=== PATIENT | male | born 1955 | race Caucasian/White ===

== ENCOUNTER 2016-05-28 19:10 | Inpatient (IN) | payer BC ==
[~2016-05-28] VITALS: Ht 177.8 cm; Wt 87.2 kg
[2016-05-28] VITALS (7 sets, daily range): BP systolic 151–198; BP diastolic 94–133; PULSE 70–109; RESP 16–32; O2SAT 95–98
[~2016-05-28 19:10] MED LIST: AMLO5 PO; ASPI81TA82 PO; ATOR40TA49 PO; CARV6.252 PO; HYDR-2768 PO; LOSA50TA PO; PRAS10TA PO
[2016-05-28] MEDS ORDERED: ASPI81CH CHEW (19:23)
[2016-05-28] MEDS ORDERED: SODIUM CHLORIDE 0.9% FLUSH 5 ML FLUSH IVF PRN (19:45)
[2016-05-28 20:22] LABS: AUTOMATED NEUTROPHIL # 5.2 TH/MM3 (1.8-7.7); BASOPHIL # 0.1 TH/MM3 (0-0.2); BASOPHIL % 0.8 % (0.0-2.0); EOSINOPHIL # 0.2 TH/MM3 (0-0.4); EOSINOPHIL % 2.6 % (0.0-4.0); HEMATOCRIT 46.5 % (39.0-51.0); HEMO FLAGS DIFF FINAL; LYMPH % 26.4 % (9.0-44.0); LYMPHOCYTE # 2.2 TH/MM3 (1.0-4.8); MEAN CELL VOLUME 79.4 FL (80.0-100.0); MEAN CORPUSCULAR HGB CONC 32.7 % (32.0-36.0); MONO % 8.6 % (0.0-8.0); NEUT % 61.6 % (16.0-70.0); PLATELET COUNT 270 TH/MM3 (150-450); RED BLOOD COUNT 5.85 MIL/MM3 (4.50-5.90); RED CELL DISTRIBUTION WIDTH 16.2 % (11.6-17.2); WHITE BLOOD COUNT 8.5 TH/MM3 (4.0-11.0)
--- NOTE | 2016-05-28 20:22 | RADRPT ---
EXAM DATE/TIME: 05/28/2016 19:48 [facility] COMPARISON: No previous studies available for comparison. INDICATIONS : Shortness of breath. MEDICAL HISTORY : None. SURGICAL HISTORY : Cardiac stent. ENCOUNTER: Initial ACUITY: 2 weeks PAIN SCORE: 0/10 LOCATION: Bilateral chest FINDINGS: Mild bibasilar consolidation with small moderate right and small left pleural effusions are noted. Th ere is a questionable 2.4 cm masslike opacity laterally the left midlung. There is mild cardiomegaly. No pneumothorax. CONCLUSION: 1. Mild failure with smaller moderate right and small left pleural effusions. 2. Questionable 2.4 cm nodule versus focal infiltrate laterally left mid lung. After clearing of the pulmonary edema and effusions, a followup 2 view chest x-ray examination is recommended. Spenser Alarcon MD on May 28, 2016 at 20:19 Board Certified Radiologist. This report was verified electronically.
[2016-05-28 20:38] LABS: APTT (PATIENT) 27.8 SEC (24.3-30.1); PROTHROMBIN TIME - PATIENT 10.8 SEC (9.8-11.6)
[2016-05-28 20:50] LABS: ANION GAP 7 MEQ/L (5-15); BICARBONATE 30.9 MEQ/L (21.0-32.0); BLOOD UREA NITROGEN 13 MG/DL (7-18); CHLORIDE 101 MEQ/L (98-107); CREATINE KINASE 111 U/L (39-308); GLOMERULAR FILTRATION RATE 64 ML/MIN (>89); MAGNESIUM 2.1 MG/DL (1.5-2.5); POTASSIUM 3.6 MEQ/L (3.5-5.1); SODIUM (NA) 139 MEQ/L (136-145)
[2016-05-28] MEDS ORDERED: hydrALAZINE HCL 20 MG/ML VIAL IV PUSH ONE (21:00)
[2016-05-28] MEDS ORDERED: AZITHROMYCIN INJ 500 MG in SODIUM CHLOR 0.9% 250 ML INJ 250 ML IV ONE (21:00)
[2016-05-28] MEDS ORDERED: cefTRIAXone INJ 1,000 MG in SODIUM CHLORIDE 0.9% INJ 100 ML IV ONE (21:00)
[2016-05-28 21:03] LABS: CKMB 2.5 NG/ML (0.5-3.6)
--- NOTE | 2016-05-28 21:11 | PD ---
HPI Chief Complaint: Respiratory Distress Time Seen by Provider: 19:24 Travel History International Travel<30 days: No Contact w/Intl Traveler<30days: No Traveled to known affect area: No History of Present Illness HPI 60yo M with PMH of CAD s/p cardiac stent 3 years ago, HTN noncompliant with medication presents to the ED with c/o sob for weeks. States it is getting worst and his finally made him come today. Pt is a chronic smoker. Pt's blood pressure is normally in the 190s/160 at home but does not see anyone and was kicked out of Dr. Villalobos's practice for noncompliance. Currently denies any fever, cough, chest pain, n/v, abdominal pain, weakness, numbness. PFSH Past Medical History Cardiac Catheterization: Yes (STENT ) Cardiovascular Problems: Yes (LA, STENT) Diminished Hearing: No Hypertension: Yes Past Surgical History Other Surgery: Yes Social History Alcohol Use: Yes (6 PACK/WEEK) Tobacco Use: Yes (1/2 PPD) Substance Use: No Allergies-Medications (Allergen,Severity, Reaction): Coded Allergies: No Known Allergies (Unverified , 05/28/16) Reported Meds & Prescriptions Reported Meds & Active Scripts Active Reported Aspirin 81 Mg Chew 81 Mg CHEW DAILY Review of Systems Except as stated in HPI: all other systems reviewed are Neg Physical Exam Narrative GENERAL: 60yo M in moderate distress. SKIN: Warm and dry. HEAD: Atraumatic. Normocephalic. EYES: Pupils equal and round. No scleral icterus. No injection or drainage. ENT: No nasal bleeding or discharge. Mucous membranes pink and moist. NECK: Trachea midline. No JVD. CARDIOVASCULAR: Regular rate and rhythm. No murmur appreciated. RESPIRATORY: +accessory muscle use. Crackles right lung, decreased breath sound left lower lung. GASTROINTESTINAL: Abdomen soft, non-tender, nondistended. MUSCULOSKELETAL: No obvious deformities. No clubbing. No cyanosis. +Bilateral lower extremity edema. NEUROLOGICAL: Awake and alert. No obvious cranial nerve deficits. Motor grossly within normal limits. Normal speech. PSYCHIATRIC: Appropriate mood and affect; insight and judgment normal. Data Data Last Documented VS Vital Signs Date Time Temp Pulse Resp B/P Pulse Ox O2 Delivery O2 Flow Rate FiO2 05/28/16 19:58 98 Nasal Cannula 2.00 05/28/16 19:58 99 26 198/132 Orders Complete Blood Count With Diff (05/28/16 19:40) Basic Metabolic Panel (Bmp) (05/28/16 19:40) B-Type Natriuretic Peptide (05/28/16 19:40) Act Partial Throm Time (Ptt) (05/28/16 19:40) Prothrombin Time / Inr (Pt) (05/28/16 19:40) Magnesium (Mg) (05/28/16 19:40) Ckmb (Isoenzyme) Profile (05/28/16 19:40) Troponin I (05/28/16 19:40) Influenzae A/B Antigen (05/28/16 19:40) Blood Culture (05/28/16 19:40) Iv Access Insert/Monitor (05/28/16 19:40) Ecg Monitoring (05/28/16 19:40) Oximetry (05/28/16 19:40) Oxygen Administration (05/28/16 19:40) Chest, Single Ap (05/28/16 19:40) Sodium Chloride 0.9% Flush (Ns Flush) (05/28/16 19:45) CKMB (05/28/16 20:01) CKMB% (05/28/16 20:01) Hydralazine Inj (Apresoline Inj) (05/28/16 21:00) Ceftriaxone Inj (Rocephin Inj) (05/28/16 21:00) Azithromycin Inj (Zithromax Inj) (05/28/16 21:00) Furosemide Inj (Lasix Inj) (05/28/16 21:15) Furosemide Inj (Lasix Inj) (05/28/16 21:15) Admit Order (Ed Use Only) (05/28/16 21:11) Place In Observation (05/28/16 ) Vital Signs (Adult) Q4H (05/28/16 21:11) Activity Oob With Assistance (05/28/16 21:11) ^ Medical Transcription Editor / Telemetry .CONTINUOUS (05/28/16 21:11) Intake + Output MICHELLE.QSHIFT (05/28/16 21:11) Diet Heart Healthy (05/29/16 Breakfast) Sodium Chloride 0.9% Flush (Ns Flush) (05/28/16 21:15) Sodium Chloride 0.9% Flush (Ns Flush) (05/29/16 09:00) Basic Metabolic Panel (Bmp) (05/29/16 06:00) Complete Blood Count With Diff (05/29/16 06:00) Creatine Kinase (Cpk) (05/29/16 08:00) Troponin I (05/29/16 08:00) Resp Oxygen Jose Manuel C Titrat 1-4 L (05/28/16 ) Pt Request For Service (05/28/16 21:11) Case Management Consult (05/28/16 21:11) Naloxone Inj (Narcan Inj) (05/28/16 21:15) Labs Laboratory Tests Test 05/28/16 20:01 White Blood Count 8.5 TH/MM3 Red Blood Count 5.85 MIL/MM3 Hemoglobin 15.2 GM/DL Hematocrit 46.5 % Mean Corpuscular Volume 79.4 FL Mean Corpuscular Hemoglobin 26.0 PG Mean Corpuscular Hemoglobin 32.7 % Concent Red Cell Distribution Width 16.2 % Platelet Count 270 TH/MM3 Mean Platelet Volume 8.0 FL Neutrophils (%) (Auto) 61.6 % Lymphocytes (%) (Auto) 26.4 % Monocytes (%) (Auto) 8.6 % Eosinophils (%) (Auto) 2.6 % Basophils (%) (Auto) 0.8 % Neutrophils # (Auto) 5.2 TH/MM3 Lymphocytes # (Auto) 2.2 TH/MM3 Monocytes # (Auto) 0.7 TH/MM3 Eosinophils # (Auto) 0.2 TH/MM3 Basophils # (Auto) 0.1 TH/MM3 CBC Comment DIFF FINAL Differential Comment Prothrombin Time 10.8 SEC Prothromb Time International 1.0 RATIO Ratio Activated Partial 27.8 SEC Thromboplast Time Sodium Level 139 MEQ/L Potassium Level 3.6 MEQ/L Chloride Level 101 MEQ/L Carbon Dioxide Level 30.9 MEQ/L Anion Gap 7 MEQ/L Blood Urea Nitrogen 13 MG/DL Creatinine 1.16 MG/DL Estimat Glomerular Filtration 64 ML/MIN Rate Random Glucose 91 MG/DL Calcium Level 9.5 MG/DL Magnesium Level 2.1 MG/DL Total Creatine Kinase 111 U/L Creatine Kinase MB 2.5 NG/ML Troponin I 0.04 NG/ML B-Type Natriuretic Peptide 653 PG/ML MDM Medical Decision Making Medical Screen Exam Complete: Yes Emergency Medical Condition: Yes Interpretation(s) EKG: Sinus tachycardia at 103bpm. LAD. LBBB. No concordance. Differential Diagnosis ACS vs. PNA vs. malignancy vs. CHF exacerbation vs. hypertensive emergency Narrative Course 60yo M with HTN, CAD s/p cardiac stent noncompliant with medication and follow up here with worsening sob for weeks. Labs reviewed, no leukocytosis, creatinine 1.16. BNP 653. Troponin 0.04. Pt is high risk but has no chest pain. CXR showed mild failure with moderate right and small left pleural effusion. Questionable 2.4cm nodule versus focal infiltrate laterally left mid lung. Pt has no fever or cough but empirically given ceftriaxone and azithromycin in ED. Pt given lasix 40mg IVP. Pt also given hydralazine 10mg IV for uncontrolled HTN. Pt saturating 98% on 2L NC. Discussed with Dr. Dowling and accepted. Informed by nurse that pt was not feeling well after ceftriaxone. States he felt more sob and dizzy and lightheaded. Medication was stopped and lung exam has not changed from prior. No uvula or tongue swelling. No itching. Pt feels better now. Pt is still tachypneic so will place on BIPAP. Dr. Dowling is informed. Do not believe this was an allergic reaction but more likely fluid overload from antibiotic. Pt is still hypertensive after hydralazine 10mg IV so nitroglycerin drip ordered. BP improved after lasix and BIPAP so nitroglycerin was not started. Pt's respiration improved on BIPAP. Discussed with Dr. Dowling and upgraded to CIC. Critical Care Narrative Aggregate critical care time was 40 minutes. Time to perform other separately billable procedures was not included in the critical care time. My time did not include minutes spent treating any other patients simultaneously or on activities that did not directly contribute to the patient's treatment. The services I provided to this patient were to treat and/or prevent clinically significant deterioration that could result in: cardiovascular collapse or . I provided critical care services requiring my management, as noted below: Chart data review, documentation time, medication orders and management, vital sign assessments/reviewing monitor data, ordering and reviewing lab tests, ordering and interpreting/reviewing x-rays and diagnostic studies, care of the patient and discussion of the patient with the admitting physicians. Diagnosis Primary Impression: CHF exacerbation Qualified Code: I50.9 - Acute on chronic congestive heart failure, unspecified congestive heart failure type Admitting Information Admitting Physician Requests: it Susie Panda DO May 28, 2016 21:11
[2016-05-28] MEDS ORDERED: SODIUM CHLORIDE 0.9% FLUSH 5 ML FLUSH FLUSH PRN (21:15)
[2016-05-28] MEDS ORDERED: NALOXONE HCL 0.4 MG/ML AMP IV PRN (21:15)
[2016-05-28] MEDS ORDERED: FUROSEMIDE 40 MG/4 ML VIAL IV PUSH ONE ×3 (21:15→22:15)
[2016-05-28] MEDS ORDERED: POTASSIUM CHLORIDE 20 MEQ CONTROLLED RELEASE TAB PO ONE (21:15)
[2016-05-28] MEDS ORDERED: MORPHINE SULFATE 4 MG/ML INJ IV PUSH ONE (22:15)
[2016-05-28] MEDS ORDERED: NITROGLYCERIN-DEXTROSE INJ 250 ML IV ONE (22:15)
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
[2016-05-29] VITALS (26 sets, daily range): BP systolic 126–176; BP diastolic 76–116; PULSE 60–87; RESP 18–22; TEMP 97.3–97.8; O2SAT 96–99
[2016-05-29 03:33] LABS: AUTOMATED NEUTROPHIL # 9.8 TH/MM3 (1.8-7.7); BASOPHIL # 0.1 TH/MM3 (0-0.2); BASOPHIL % 0.7 % (0.0-2.0); EOSINOPHIL # 0.1 TH/MM3 (0-0.4); EOSINOPHIL % 0.5 % (0.0-4.0); HEMATOCRIT 44.7 % (39.0-51.0); HEMO FLAGS DIFF FINAL; LYMPHOCYTE # 1.2 TH/MM3 (1.0-4.8); MEAN CELL VOLUME 78.7 FL (80.0-100.0); MEAN CORPUSCULAR HEMOGLOBIN 25.5 PG (27.0-34.0); MEAN CORPUSCULAR HGB CONC 32.4 % (32.0-36.0); MONO % 4.7 % (0.0-8.0); NEUT % 84.1 % (16.0-70.0); PLATELET COUNT 272 TH/MM3 (150-450); RED BLOOD COUNT 5.69 MIL/MM3 (4.50-5.90); RED CELL DISTRIBUTION WIDTH 15.9 % (11.6-17.2); WHITE BLOOD COUNT 11.6 TH/MM3 (4.0-11.0)
[2016-05-29 03:55] LABS: BICARBONATE 32.7 MEQ/L (21.0-32.0); POTASSIUM 3.7 MEQ/L (3.5-5.1)
[2016-05-29] MEDS: hydrALAZINE HCL 20 MG/ML VIAL IV PUSH PRN (07:38)
[2016-05-29] MEDS: ENOXAPARIN SODIUM 40 MG/0.4 ML SYRINGE SQ SCH (09:00)
[2016-05-29] MEDS: ASPIRIN EC 325 MG TABEC PO SCH (09:31)
[2016-05-29] MEDS: FUROSEMIDE 40 MG/4 ML VIAL IV PUSH SCH ×2 (09:31→18:17)
[2016-05-29] MEDS: CARVEDILOL 3.125 MG TAB PO SCH ×2 (09:31→20:27)
[2016-05-29] MEDS: SODIUM CHLORIDE 0.9% FLUSH 5 ML FLUSH FLUSH SCH ×2 (09:32→20:29)
--- NOTE | 2016-05-29 13:20 | HHI.PR ---
Subjective Remarks Follow up for Pulmonary edema, CHF. Mr. Ring is doing well. He reports significant improvement. He can now walk in the room and in the hallway without having to stop like he was doing before he came to the hospital. Denies any chest pain, fever, chills. Objective Vitals Vital Signs Date Time Temp Pulse Resp B/P Pulse Ox O2 Delivery O2 Flow Rate FiO2 05/29/16 13:04 70 05/29/16 12:02 60 05/29/16 11:52 62 05/29/16 11:52 97.8 71 18 126/77 97 05/29/16 10:17 76 05/29/16 09:06 98 Nasal Cannula 2.00 05/29/16 09:00 79 05/29/16 08:00 71 05/29/16 07:43 74 05/29/16 07:43 97.8 70 18 172/116 98 05/29/16 04:00 64 05/29/16 03:32 66 18 159/102 98 152/100 05/29/16 03:00 64 05/29/16 02:41 97.5 87 22 165/102 98 05/29/16 02:35 84 05/29/16 01:00 67 20 140/76 98 Nasal Cannula 2 05/29/16 01:00 96 Nasal Cannula 2.50 05/29/16 00:45 60 22 176/98 99 BiPAP 05/28/16 23:45 70 22 151/94 98 BiPAP 05/28/16 22:52 90 32 182/113 96 BiPAP 05/28/16 22:15 98 BiPAP 40 05/28/16 22:00 97 40 05/28/16 19:58 98 Nasal Cannula 2.00 05/28/16 19:58 99 26 198/132 98 Nasal Cannula 2 05/28/16 19:48 98 Room Air 05/28/16 19:48 97 Nasal Cannula 2 05/28/16 19:21 32 97 05/28/16 19:18 109 26 95 05/28/16 19:13 16 193/128 95 194/133 I/O 05/28/16 05/28/16 05/28/16 05/29/16 05/29/16 05/29/16 07:00 15:00 23:00 07:00 15:00 23:00 Output Total 1000 ml 2000 ml Balance -1000 ml -2000 ml Output Urine Total 1000 ml 2000 ml # Voids 1 Result Diagram: 05/29/1631805/29/16318 Imaging Last Impressions Chest X-Ray 05/28/161939 Signed Impressions: Service Date/Time: Saturday, May 28, 2016 19:48 - CONCLUSION: 1. Mild failure with smaller moderate right and small left pleural effusions. 2. Questionable 2.4 cm nodule versus focal infiltrate laterally left mid lung. After clearing of the pulmonary edema and effusions, a followup 2 view chest x-ray examination is recommended. Spenser Alarcon MD Objective Remarks GENERAL: AOx3, NAD. SKIN: Warm and dry. HEAD: Normocephalic. EYES: No scleral icterus. No injection or drainage. NECK: Supple, trachea midline. No JVD or lymphadenopathy. CARDIOVASCULAR: Regular rate and rhythm without murmurs, gallops, or rubs. RESPIRATORY: Moderate air entry. Lungs appear to be clear with no significant wheezing, rales, crackles. GASTROINTESTINAL: Abdomen soft, non-tender, nondistended. MUSCULOSKELETAL: No cyanosis, or edema. BACK: Nontender without obvious deformity. No CVA tenderness. Procedures None. A/P Problem List: (1) Hypertensive emergency ICD Code: I16.1 Status: Acute (2) CHF exacerbation ICD Code: I50.9 Status: Acute Assessment and Plan Mr. Ring is a pleasant 60 year old male with a history of CAD s/p stent placement who presented to the ED due to SOB for weeks including orthopnea. During worsening symptoms, his brought him to the hospital. His BP was very high (193/128) on admission. - Accelerated hypertension - After lasix, hydralazine, blood pressure improved. - Currently normotensive. - Acute exacerbation of CHF - likely systolic. - Cardiac cath on 09/03/2013 shows EF 37%. Patient underwent MAINOR placement to posterolateral circumflex artery. - Continue Aspirin 325mg, Carvedilol 3.125mg Q12hrs. - Will add 40mg of Lipitor QHS and lisinopril 10mg Qday. - Cardiology consult pending. - Continue Lasix 40mg Q12 hrs today. Consider Torsemide on discharge. - Left lung nodule on CXR 2.4cm - due to patient's long history of smoking and CXR findings, we will obtain a CT chest with IV contrast. Full code. Lovenox. Problem Qualifiers (1) CHF exacerbation: Qualified Code: I50.9 - Acute on chronic congestive heart failure, unspecified congestive heart failure type Jasmina Melissa DO May 29, 2016 1:20 pm
[2016-05-29] MEDS ORDERED: IOHEXOL 350 MG/ML 10 ML VIAL (for RAD DIAG) IV ONE (17:23)
--- NOTE | 2016-05-29 18:19 | RADRPT ---
EXAM DATE/TIME: 05/29/2016 17:17 [facility] COMPARISON: No previous studies available for comparison. INDICATIONS : Abnormal chest x-ray yesterday; evaluate for mass. IV CONTRAST: 80 cc Omnipaque 350 (iohexol) IV RADIATION DOSE: 6.30 CTDIvol (mGy) MEDICAL HISTORY : Hypertension. Myocardial infarction. SURGICAL HISTORY : Cardiac stent. ENCOUNTER: Initial ACUITY: 2 days PAIN SCALE: 0/10 LOCATION: cranial TECHNIQUE: Volumetric scanning of the chest was performed. Using automated exposure control and adjustment of t he mA and/or kV according to patient size, radiation dose was kept as low as reasonably achievable to obtain optimal diagnostic quality images. FINDINGS: There is a moderate sized right pleural effusion. No significant left effusion. There is some mariia sive atelectasis in the right lung. No significant left lung consolidation or mass. No acute findings in the upper abdomen. Left renal cyst. There is no pneumothorax. No acute bony abnormalities. CONCLUSION: 1. Moderate size right pleural effusion with some compressive atelectasis in the right lung. No signi ficant left lung consolidation. No adenopathy. Fermín Marlow MD on May 29, 2016 at 18:14 Board Certified Radiologist. This report was verified electronically.
--- NOTE | 2016-05-29 19:02 | EC ---
Study Study Date:05/29/2016 STUDY CONCLUSIONS SUMMARY - Left ventricle: The cavity size was severely dilated. Wall thickness was increased in a pattern of mild LVH. Systolic function was severely reduced. The estimated ejection fraction was in the range of 10% to 15%. Diffuse hypokinesis. - Mitral valve: Mild regurgitation directed centrally. If LV function is below 40, please consider prescribing an ACEI or ARB or document rationale for non-use. PROCEDURE DATA STUDY STATUS: Elective. Procedure: Transthoracic echocardiography. Image quality was good. Scanning was performed from the parasternal, apical, and subcostal acoustic windows. Study completion: The patient tolerated the procedure well. Transthoracic echocardiography. M-mode, complete 2D, complete spectral Doppler, and color Doppler. Height: Height: 70in. Weight: Weight: 186.6lb. Body mass index: BMI: 26.8kg/m^2. Body surface area: BSA: 2.03m^2. Patient status: Inpatient. CARDIAC ANATOMY LEFT VENTRICLE: The cavity size was severely dilated. Wall thickness was increased in a pattern of mild LVH. Systolic function was severely reduced. The estimated ejection fraction was in the range of 10% to 15%. Diffuse hypokinesis. AORTIC VALVE: The valve appears to be grossly normal. Doppler: There was no stenosis. No significant regurgitation. Valve area: 3.63cm^2(VTI). Indexed valve area: 1.79cm^2/m^2 (VTI). Valve area: 3.93cm^2 (Vmax). Indexed valve area: 1.94cm^2/m^2 (Vmax). Mean gradient: 4mm Hg (S). MITRAL VALVE: The valve appears to be grossly normal. Doppler: There was no evidence for stenosis. Mild regurgitation directed centrally. Peak gradient: 5mm Hg (D). PULMONIC VALVE: Not well visualized. Doppler: There was no evidence for stenosis. No significant regurgitation. TRICUSPID VALVE: The valve appears to be grossly normal. Doppler: There was no evidence for stenosis. Trace regurgitation. Patient weight: 186.6lb _Ejection fraction:_ 65-75% _Fractional shortening:_ 32% up to 5Kg 5-11.5Kg 11.6-22.9Kg 23-45Kg 45-57Kg Aortic Root 7-13 <17 13-22 17-27 17-27 LA diam 6-13 <23 24-38 33-47 37-40 RVID 10-17 7-15 7-15 7-18 8-17 LVIDd 12-22 <32 24-38 33-47 37-40 LVPW 2-4 3-6 5-7 6-8 7-8 IVS 2-4 3-6 5-7 6-8 7-8 BASIC MEASUREMENTS ADULT NORMAL Left ventricle LV internal dimension, ED, chordal *61.5 mm 43-52 level, PLAX LV internal dimension, ES, chordal *57.4 mm 23-38 level, PLAX Fractional shortening, chordal level, *7 % >29 PLAX LV posterior wall thickness, ED 13.6 mm IVS/LVPW ratio, ED 0.99 <1.3 Volume, ED, MOD, 1-plane 267 ml Volume, ES, MOD, 1-plane 246 ml Ejection fraction, MOD, 1-plane 8 % Stroke volume, MOD, 1-plane 21 ml Volume index, ED, MOD, 1-plane 132 ml/m^2 Volume index, ES, MOD, 1-plane 121 ml/m^2 Stroke index, MOD, 1-plane 10.3 ml/m^2 Volume, ED, MOD, 2-plane 310 ml Volume, ES, MOD, 2-plane 257 ml Ejection fraction, MOD, 2-plane 17 % Stroke volume, MOD, 2-plane 53 ml Volume index, ED, MOD, 2-plane 153 ml/m^2 Volume index, ES, MOD, 2-plane 127 ml/m^2 Stroke index, MOD, 2-plane 26.1 ml/m^2 Ventricular septum Septal thickness, ED 13.5 mm Aortic valve Leaflet separation 18 mm 15-26 Aorta Root diameter, ED 40 mm BASIC MEASUREMENTS ADULT NORMAL Aortic valve Leaflet separation 18 mm 15-26 DOPPLER MEASUREMENTS ADULT NORMAL Main pulmonary artery Pressure, S 28 mm Hg =30 Aortic valve Peak velocity, S 135 cm/s Mean velocity, S 84.2 cm/s VTI, S 22.7 cm Mean gradient, S 4 mm Hg Valve area, VTI 3.63 cm^2 Valve area index, VTI 1.79 cm^2/m^2 Valve area, Vmax 3.93 cm^2 Valve area index, Vmax 1.94 cm^2/m^2 Mitral valve Peak E-wave velocity 108 cm/s Peak A-wave velocity 79 cm/s Peak gradient, D 5 mm Hg Peak E/A ratio 1.4 Tricuspid valve Regurgitant peak velocity 246 cm/s Peak RV-RA gradient, S 24 mm Hg Maximal regurgitant velocity 246 cm/s Systemic veins Estimated CVP 5 mm Hg Right ventricle RV pressure, S 29 mm Hg <30 Pulmonic valve Peak velocity, S 56.8 cm/s LEGEND: Mean values are shown as u=mean value. Asterisk (*) [place] values outside specified normal range. Prepared and signed by Contreras Reynoso [id number]
[2016-05-29] MEDS: ATORVASTATIN 40 MG TAB PO SCH (20:27)
--- NOTE | 2016-05-29 23:53 | EKG ---
Date Performed: 05/28/2016 Time Performed: 19:24:58 PTAGE: 60 years EKG: SINUS TACHYCARDIA POSSIBLE LEFT ATRIAL ENLARGEMENT MARKED LEFT AXIS DEVIATION LEFT BUNDLE B RANCH BLOCK ABNORMAL ECG PREVIOUS TRACING : 09/04/2013 05.19 DOCTOR: Carly Cantrell Interpretating Date/Time 05/29/2016 23:46:30
[2016-05-30] VITALS (28 sets, daily range): BP systolic 138–159; BP diastolic 70–107; PULSE 55–87; RESP 16–20; TEMP 97–97.9; O2SAT 96–98
[2016-05-30] MEDS: hydrALAZINE HCL 20 MG/ML VIAL IV PUSH PRN (05:33)
[2016-05-30] MEDS: ENOXAPARIN SODIUM 40 MG/0.4 ML SYRINGE SQ SCH (08:19)
[2016-05-30] MEDS: ASPIRIN EC 325 MG TABEC PO SCH (08:24)
[2016-05-30] MEDS: SODIUM CHLORIDE 0.9% FLUSH 5 ML FLUSH FLUSH SCH ×2 (08:25→21:28)
[2016-05-30] MEDS: FUROSEMIDE 40 MG/4 ML VIAL IV PUSH SCH ×2 (08:25→17:08)
[2016-05-30] MEDS: CARVEDILOL 3.125 MG TAB PO SCH (08:25)
[2016-05-30] MEDS: LISINOPRIL 10 MG TAB PO SCH (08:25)
--- NOTE | 2016-05-30 10:22 | HHI.PR ---
Subjective Remarks Follow up for CHF exacerbation. Patient is doing well, sleeping comfortably. Denies any CP, SOB, fever, chills. Discussed with about patient's compliance issue. She contacted Dr. Melgar's office and was told that he will not see this patient. Patient was fired from Dr. Melgar's office due to non-compliance. Objective Vitals Vital Signs Date Time Temp Pulse Resp B/P Pulse Ox O2 Delivery O2 Flow Rate FiO2 05/30/16 10:03 64 05/30/16 09:29 97.6 68 18 138/70 96 05/30/16 09:27 68 05/30/16 08:02 63 05/30/16 07:00 65 05/30/16 06:00 69 05/30/16 05:00 65 05/30/16 04:00 55 05/30/16 04:00 97.8 70 20 158/107 97 05/30/16 03:00 68 05/30/16 02:00 87 05/30/16 01:00 64 05/30/16 00:00 60 05/30/16 00:00 97.7 69 20 159/95 96 05/29/16 23:00 67 05/29/16 22:38 97 Nasal Cannula 2.00 05/29/16 22:00 66 05/29/16 21:00 69 05/29/16 20:00 71 20 156/93 97 05/29/16 20:00 70 05/29/16 19:00 68 05/29/16 18:11 68 05/29/16 17:32 72 05/29/16 16:07 67 05/29/16 15:04 97.3 73 18 137/92 96 05/29/16 15:04 70 05/29/16 14:28 78 05/29/16 13:04 70 05/29/16 12:02 60 05/29/16 11:52 62 05/29/16 11:52 97.8 71 18 126/77 97 I/O 05/29/16 05/29/16 05/29/16 05/30/16 05/30/16 05/30/16 07:00 15:00 23:00 07:00 15:00 23:00 Intake Total 960 ml 200 ml Output Total 2000 ml 1650 ml Balance -2000 ml -690 ml 200 ml Intake Oral 960 ml 200 ml Output Urine Total 2000 ml 1650 ml # Voids 1 2 # Bowel Movements 1 Result Diagram: 05/29/16 0319 05/29/16 0319 Imaging Last Impressions Chest CT 05/29/16 0000 Signed Impressions: Service Date/Time: Sunday, May 29, 2016 17:17 - CONCLUSION: 1. Moderate size right pleural effusion with some compressive atelectasis in the right lung. No significant left lung consolidation. No adenopathy. Fermín Marlow MD Chest X-Ray 05/28/16 194 Signed Impressions: Service Date/Time: Saturday, May 28, 2016 19:48 - CONCLUSION: 1. Mild failure with smaller moderate right and small left pleural effusions. 2. Questionable 2.4 cm nodule versus focal infiltrate laterally left mid lung. After clearing of the pulmonary edema and effusions, a followup 2 view chest x-ray examination is recommended. Spenser Alarcon MD Objective Remarks GENERAL: AOx3, NAD. SKIN: Warm and dry. HEAD: Normocephalic. EYES: No scleral icterus. No injection or drainage. NECK: Supple, trachea midline. No JVD or lymphadenopathy. CARDIOVASCULAR: Regular rate and rhythm without murmurs, gallops, or rubs. RESPIRATORY: Moderate air entry. Lungs appear to be clear with no significant wheezing, rales, crackles. GASTROINTESTINAL: Abdomen soft, non-tender, nondistended. MUSCULOSKELETAL: No cyanosis, or edema. BACK: Nontender without obvious deformity. No CVA tenderness. Procedures Echo 05/29/2016 - Left ventricle: The cavity size was severely dilated. Wall thickness was increased in a pattern of mild LVH. Systolic function was severely reduced. The estimated ejection fraction was in the range of 10% to 15%. Diffuse hypokinesis. - Mitral valve: Mild regurgitation directed centrally. A/P Problem List: (1) Hypertensive emergency ICD Code: I16.1 Status: Acute (2) CHF exacerbation ICD Code: I50.9 Status: Acute Assessment and Plan Mr. Ring is a pleasant 60 year old male with a history of CAD s/p stent placement who presented to the ED due to SOB for weeks including orthopnea. During worsening symptoms, his brought him to the hospital. His BP was very high (193/128) on admission. - Accelerated hypertension - After lasix, hydralazine, blood pressure improved. - Currently normotensive. - Acute exacerbation of CHF - likely systolic. - LBBB - Cardiac cath on 09/03/2013 shows EF 37%. Patient underwent MAINOR placement to posterolateral circumflex artery. - Echo on 05/29/2016 shows EF 10-15%. - Continue Aspirin 325mg, Carvedilol 3.125mg Q12hrs. - Continue 40mg of Lipitor QHS and lisinopril 10mg Qday. - Start Spironolactone 25mg Qday. 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 - Continue Lasix 40mg IV Q12 hrs for now. Consider Torsemide on discharge. 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 - Left lung nodule on CXR 2.4cm - due to patient's long history of smoking and CXR findings, CT chest was obtained which did not show any nodule but showed right sided moderate effusion. Full code. Lovenox. Problem Qualifiers (1) CHF exacerbation: Qualified Code: I50.9 - Acute on chronic congestive heart failure, unspecified congestive heart failure type Jasmina Melissa DO May 30, 2016 10:22 am
--- NOTE | 2016-05-30 12:26 | MB ---
cc: NENA MCCAIN MD DATE OF CONSULTATION 05/30/2016 HISTORY This is a 60-year-old male who is admitted to the hospital for shortness of breath. He has a history of coronary artery disease with PTCA and stenting three years ago. Apparently took aspirin and Plavix, as well as his other medications for approximately three months and then discontinue all of them except for aspirin. He has actually done well since that time until approximately a month ago when he began noticing fatigue and tiredness, as well as dyspnea on exertion. 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 His notes that he has had increasing dyspnea on exertion, as well as orthopnea. No PND has been present. They have also noted ankle edema which has been present over the past three to four weeks. No chest pain has been present, in fact, he did not have chest pain prior to his stenting procedure. PAST MEDICAL HISTORY His a past medical history has otherwise been unremarkable and he has not been to a hospital or doctors. ALLERGIES None MEDICATIONS PRIOR TO ADMISSION Have been only been aspirin. Since his admission, he has been given: 1. Lasix 40 mg twice a day with good diuresis as per the patient. 2. He has also been started on a moderate dose of Lisinopril and a small dose of Carvedilol. Chest x-ray revealed evidence for cardiomegaly and heart failure and an echocardiogram has shown an EF of 10-15%. ALLERGIES None SOCIAL HISTORY The patient mows lawns as noted above. He smokes approximately a quarter pack of cigarettes per day and drinks four to six beers per day. He does not use recreational drugs. PHYSICAL EXAM On physical exam, his blood pressure is 138/70, pulse is 65 and regular. NECK: There is no neck vein distension. No carotid bruits are present. LUNGS: Reveal faint crackles in bases. No wheezes or rhonchi are present. CARDIOVASCULAR: Exam was a regular rate and rhythm. There is no murmur or gallop. ABDOMEN: Soft. EXTREMITIES: Reveal plus one to two pedal edema. ASSESSMENT The patient has heart failure with a significantly low ejection fraction. We will order a Lexiscan to further evaluate him for ischemia. Certainly agree with lisinopril with carvedilol and we will try to maximize those doses and for the time being continue his dose of Lasix as ordered. MD SHANKAR Carmen/KAMLESH /11:54 AM /12:20 PM
[2016-05-30] MEDS: CARVEDILOL 6.25 MG TAB PO SCH (21:28)
[2016-05-30] MEDS: ATORVASTATIN 40 MG TAB PO SCH (21:28)
[2016-05-31] VITALS (14 sets, daily range): BP systolic 140–161; BP diastolic 75–91; PULSE 52–77; RESP 16–18; TEMP 97.8–98.5; O2SAT 95–98
[2016-05-31] MEDS ORDERED: SPIRONOLACTONE 25 MG TAB PO SCH (09:00)
[2016-05-31] MEDS: ENOXAPARIN SODIUM 40 MG/0.4 ML SYRINGE SQ SCH (09:00)
[2016-05-31] MEDS ORDERED: REGADENOSON INJ 0.4 MG/5 ML SYR ONE (09:51)
[2016-05-31] MEDS: LISINOPRIL 10 MG TAB PO SCH (11:18)
[2016-05-31] MEDS: CARVEDILOL 6.25 MG TAB PO SCH (11:19)
[2016-05-31] MEDS: ASPIRIN EC 325 MG TABEC PO SCH (11:19)
[2016-05-31] MEDS: FUROSEMIDE 40 MG/4 ML VIAL IV PUSH SCH (11:20)
[2016-05-31] MEDS: SODIUM CHLORIDE 0.9% FLUSH 5 ML FLUSH FLUSH SCH (11:20)
--- NOTE | 2016-05-31 11:33 | RADRPT ---
EXAM DATE/TIME: 05/31/2016 09:25 [facility] COMPARISON: No previous studies available for comparison. INDICATIONS : Shortness of breath and overall weakness on the past week. Cardiac cath and cardiac stents placed. Cu rrent smoker. Coronary artery disease. Myocardial infarction. DOSE: 28.1 mCi Tc99m Myoview at stress. 8.1 mCi Tc99m Myoview at rest. 0.4 mg Lexiscan STRESS SYMPTOMS: Shortness of breath and weird feeling. EJECTION FRACTION: 22% MEDICAL HISTORY : Hypertension. SURGICAL HISTORY : Coronary artery stent. ENCOUNTER: Initial ACUITY: 1 week PAIN SCALE: 3/10 LOCATION: Bilateral chest TECHNIQUE: The patient underwent pharmacologic stress with infusion of prescribed dose. Continuous ECG tracing was monitored during stress. Gated SPECT imaging was performed after stress and conventional SPECT i maging was performed at rest. The examination was performed on a SPECT/CT scanner, both attenuation and non-corrected datasets were reviewed. FINDINGS: DISTRIBUTION: The maximum perfused segment at stress is in the anterolateral wall. PERFUSION STUDY: The pattern of perfusion at stress is within normal limits. GATED STUDY: There is global hypokinesis CONCLUSION: 1. No significant reversibility to suggest ischemia. 2. Global hypokinesis with ejection fraction 22%. RISK CATEGORY: High (>3% Annual Mortality Rate) Fermín Marlow MD on May 31, 2016 at 11:26 Board Certified Radiologist. This report was verified electronically.
--- NOTE | 2016-05-31 13:48 | HHI.PR ---
Objective Vitals Vital Signs Date Time Temp Pulse Resp B/P Pulse Ox O2 Delivery O2 Flow Rate FiO2 05/31/16 12:22 96 21 05/31/16 12:00 75 05/31/16 11:00 77 05/31/16 11:00 97.8 76 18 161/91 95 05/31/16 08:00 62 05/31/16 08:00 98.5 67 18 148/91 98 05/31/16 07:00 73 05/31/16 06:00 69 05/31/16 05:49 98.3 66 16 151/75 97 05/31/16 05:00 68 05/31/16 04:00 68 05/31/16 03:00 61 05/31/16 02:21 97.8 73 16 140/88 95 05/31/16 02:00 55 05/31/16 01:00 52 05/31/16 00:00 62 05/30/16 23:00 67 05/30/16 22:00 83 05/30/16 21:00 73 05/30/16 20:00 97.9 72 16 143/84 96 05/30/16 20:00 74 05/30/16 19:00 71 05/30/16 18:10 74 05/30/16 17:42 72 05/30/16 16:13 68 05/30/16 15:34 97.0 72 18 148/80 98 05/30/16 15:02 69 05/30/16 14:06 68 I/O 05/30/16 05/30/16 05/30/16 05/31/16 05/31/16 05/31/16 07:00 15:00 23:00 07:00 15:00 23:00 Intake Total 200 ml 600 ml 480 ml Output Total 1050 ml 1150 ml Balance 200 ml -450 ml -670 ml Intake Oral 200 ml 600 ml 480 ml IV Total 0 ml 0 ml Output Urine Total 1050 ml 1150 ml # Voids 2 # Bowel Movements 0 Result Diagram: 05/29/1631805/29/16318 Objective Remarks GENERAL: AOx3, NAD. SKIN: Warm and dry. HEAD: Normocephalic. EYES: No scleral icterus. No injection or drainage. NECK: Supple, trachea midline. No JVD or lymphadenopathy. CARDIOVASCULAR: Regular rate and rhythm without murmurs, gallops, or rubs. RESPIRATORY: Moderate air entry. Lungs appear to be clear with no significant wheezing, rales, crackles. GASTROINTESTINAL: Abdomen soft, non-tender, nondistended. MUSCULOSKELETAL: No cyanosis, or edema. BACK: Nontender without obvious deformity. No CVA tenderness. Procedures Echo 05/29/2016 - Left ventricle: The cavity size was severely dilated. Wall thickness was increased in a pattern of mild LVH. Systolic function was severely reduced. The estimated ejection fraction was in the range of 10% to 15%. Diffuse hypokinesis. - Mitral valve: Mild regurgitation directed centrally. A/P Problem List: (1) Hypertensive emergency ICD Code: I16.1 Status: Acute (2) CHF exacerbation ICD Code: I50.9 Status: Acute Assessment and Plan Mr. Ring is a pleasant 60 year old male with a history of CAD s/p stent placement who presented to the ED due to SOB for weeks including orthopnea. During worsening symptoms, his brought him to the hospital. His BP was very high (193/128) on admission. - Accelerated hypertension - After lasix, hydralazine, blood pressure improved. - Currently normotensive. - Acute exacerbation of CHF - likely systolic. - LBBB - Cardiac cath on 09/03/2013 shows EF 37%. Patient underwent MAINOR placement to posterolateral circumflex artery. - Echo on 05/29/2016 shows EF 10-15%. - Continue Aspirin 325mg, Carvedilol 3.125mg Q12hrs. - Continue 40mg of Lipitor QHS and lisinopril 10mg Qday. - Start Spironolactone 25mg Qday. 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 - Continue Lasix 40mg IV Q12 hrs for now. Consider Torsemide on discharge. 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 - Left lung nodule on CXR 2.4cm - due to patient's long history of smoking and CXR findings, CT chest was obtained which did not show any nodule but showed right sided moderate effusion. Full code. Lovenox. Problem Qualifiers (1) CHF exacerbation: Qualified Code: I50.9 - Acute on chronic congestive heart failure, unspecified congestive heart failure type Jasmina Melissa DO May 31, 2016 1:48 pm
--- NOTE | 2016-05-31 13:52 | PD.CARD.PN ---
Subjective Subjective Remarks Feels better. no chest pain. Dyspnea improved Objective Vital Signs / I&O Vital Signs Date Time Temp Pulse Resp B/P Pulse Ox O2 Delivery O2 Flow Rate FiO2 05/31/16 12:22 96 21 05/31/16 12:00 75 05/31/16 11:00 77 05/31/16 11:00 97.8 76 18 161/91 95 05/31/16 08:00 62 05/31/16 08:00 98.5 67 18 148/91 98 05/31/16 07:00 73 05/31/16 06:00 69 05/31/16 05:49 98.3 66 16 151/75 97 05/31/16 05:00 68 05/31/16 04:00 68 05/31/16 03:00 61 05/31/16 02:21 97.8 73 16 140/88 95 05/31/16 02:00 55 05/31/16 01:00 52 05/31/16 00:00 62 05/30/16 23:00 67 05/30/16 22:00 83 05/30/16 21:00 73 05/30/16 20:00 97.9 72 16 143/84 96 05/30/16 20:00 74 05/30/16 19:00 71 05/30/16 18:10 74 05/30/16 17:42 72 05/30/16 16:13 68 05/30/16 15:34 97.0 72 18 148/80 98 05/30/16 15:02 69 05/30/16 14:06 68 I/O 05/30/16 05/30/16 05/30/16 05/31/16 05/31/16 05/31/16 07:00 15:00 23:00 07:00 15:00 23:00 Intake Total 200 ml 600 ml 480 ml Output Total 1050 ml 1150 ml Balance 200 ml -450 ml -670 ml Intake Oral 200 ml 600 ml 480 ml IV Total 0 ml 0 ml Output Urine Total 1050 ml 1150 ml # Voids 2 # Bowel Movements 0 Physical Exam Lungs clear rrr no murmur Assessment and Plan Assessment and Plan Improved. Will maximize carvedilol and lisinopril. OK to D/C on both plus lasix 40 mg daily . Will f/u 1 week. Lexiscan negative for ischemia Jt Toscano MD, FACC May 31, 2016 13:52
--- NOTE | 2016-05-31 13:54 | HHI.DS ---
Discharge Summary Admission Date May 28, 2016 at 10:13 pm Discharge Date: May 31, 2016 Admitting Diagnosis CHF exacerbation, lung mass work up (1) Hypertensive emergency ICD Code: I16.1 Diagnosis: Principal (2) CHF exacerbation ICD Code: I50.9 Diagnosis: Principal Procedures Echo 05/29/2016 - Left ventricle: The cavity size was severely dilated. Wall thickness was increased in a pattern of mild LVH. Systolic function was severely reduced. The estimated ejection fraction was in the range of 10% to 15%. Diffuse hypokinesis. - Mitral valve: Mild regurgitation directed centrally. Brief History - From Admission History from patient, ER physician communication, and review of medical records. Patient reported that he came to the hospital because he has been short of breath since the beginning of April. 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 He stated he has been also swelling in his lower extremities. He denies any specific chest pains but did have discomfort. He denies any fever. Denies any black color stool or red color stool. Denies any blood in his urine. Denies fever. Patient states that in the beginning of the month, his shortness of breath would go away when he takes his aspirin double the dose. He usually takes a baby aspirin. By now, that shortness of breath is not going away despite taking aspirin. Patient reports of history of CAD for which he had coronary artery stenting placed previously. He stated that he was seen in Dr. Grande for his CAD and he was actually placed on 6 medicines for this. He states that after the start of medications, he was having extreme agitations and had arguments and fights with multiple family members and coworkers to the point that if he did not stop some of these medications, he would have been Sr acted and sent to hospital. He therefore discussed his symptoms with Dr. Grande and there was some miscommunications between them and he ended up stopping his medications on his own and also ended up not seeing Dr. Grande. However he states that Dr. Grande is the best material preparation worker for him and also is his 's doctor. He would therefore want him to be his doctor again. He reports he was also told that he had a CVA previously through imaging studies although he was not symptomatic. He was told of history of hypertension but not on medications. He states he's only taking a baby aspirin at home now. In the emergency room, patient's upon initial arrival was having blood pressures of 200s over 100s. He was given hydralazine 10 mg IV for this initially. In the emergency room, patient became acutely short of breath after receiving Rocephin. However there was no rash. No hives. No tongue swelling. Patient was therefore given Lasix 40 mg IV 1 dose and immediately placed on BiPAP since his workup clearly revealed pulmonary edema/fluid overload. I have also given another 40 mg Lasix IV at the time of my arrival as patient is quite dyspneic at time of my exam. He however improved with BiPAP and his blood pressure came down to about 160s over 90s. He also diuresed 1000 ml. CBC/BMP: 05/29/16 0319 05/29/16 0319 Significant Findings Laboratory Tests Test 05/28/16 05/29/16 20:01 03:19 Mean Corpuscular Volume 79.4 FL 78.7 FL (80.0-100.0) (80.0-100.0) Mean Corpuscular Hemoglobin 26.0 PG 25.5 PG (27.0-34.0) (27.0-34.0) Monocytes (%) (Auto) 8.6 % (0.0-8.0) Estimat Glomerular Filtration 64 ML/MIN (>89) 66 ML/MIN (>89) Rate B-Type Natriuretic Peptide 653 PG/ML (0-100) White Blood Count 11.6 TH/MM3 (4.0-11.0) Neutrophils (%) (Auto) 84.1 % (16.0-70.0) Neutrophils # (Auto) 9.8 TH/MM3 (1.8-7.7) Carbon Dioxide Level 32.7 MEQ/L (21.0-32.0) Random Glucose 135 MG/DL (74-106) Imaging Last Impressions Myocardial Perfusion Scan Nuc Med 05/31/16 0000 Signed Impressions: Service Date/Time: May 09:25 - CONCLUSION: 1. No significant reversibility to suggest ischemia. 2. Global hypokinesis with ejection fraction 22%%. RISK CATEGORY: High (>3%% Annual Mortality Rate) Fermín Marlow MD Chest CT 05/29/16 0000 Signed Impressions: Service Date/Time: Sunday, May 29, 2016 17:17 - CONCLUSION: 1. Moderate size right pleural effusion with some compressive atelectasis in the right lung. No significant left lung consolidation. No adenopathy. Fermín Marlow MD Chest X-Ray 05/28/16 1940 Signed Impressions: Service Date/Time: Saturday, May 28, 2016 19:48 - CONCLUSION: 1. Mild failure with smaller moderate right and small left pleural effusions. 2. Questionable 2.4 cm nodule versus focal infiltrate laterally left mid lung. After clearing of the pulmonary edema and effusions, a followup 2 view chest x-ray examination is recommended. Spenser Alarcon MD PE at Discharge GENERAL: AOx3, NAD. SKIN: Warm and dry. HEAD: Normocephalic. EYES: No scleral icterus. No injection or drainage. NECK: Supple, trachea midline. No JVD or lymphadenopathy. CARDIOVASCULAR: Regular rate and rhythm without murmurs, gallops, or rubs. RESPIRATORY: Moderate air entry. Lungs appear to be clear with no significant wheezing, rales, crackles. GASTROINTESTINAL: Abdomen soft, non-tender, nondistended. MUSCULOSKELETAL: No cyanosis, or edema. BACK: Nontender without obvious deformity. No CVA tenderness. Pt update on day of discharge Mr. Ring is doing well. No acute concerns. Denies any CP, SOB, fever, chills. Discussed with Dr. Toscano (cardiology) who cleared for discharge with a follow up with him in one week. Hospital Course Mr. Ring is a pleasant 60 year old male with a history of CAD s/p stent placement who presented to the ED due to SOB for weeks including orthopnea. During worsening symptoms, his brought him to the hospital. His BP was very high (193/128) on admission. - Accelerated hypertension - After lasix, hydralazine, blood pressure improved. - Currently normotensive. - Acute exacerbation of CHF - likely systolic. - LBBB - Cardiomyopathy - Cardiac cath on 09/03/2013 shows EF 37%. Patient underwent MAINOR placement to posterolateral circumflex artery. - Echo on 05/29/2016 shows EF 10-15%. Continue aspirin, carvedilol, Lasix, lisinopril, potassium chloride, atorvastatin. - Cardiology consulted - recommended HF medications and follow up with Cardiology in one week. - Left lung nodule on CXR 2.4cm - due to patient's long history of smoking and CXR findings, CT chest was obtained which did not show any nodule but showed right sided moderate effusion. Pt Condition on Discharge: Good Discharge Disposition: Discharge Home Discharge Time: > 30 minutes Discharge Instructions DIET: Follow Instructions for: Heart Healthy Diet Activities you can perform: Regular-No Restrictions Follow up Referrals: Cardiology - 1 Week with Jt Toscano MD, [facility] Follow-up New Medications: Atorvastatin (Lipitor) 40 Mg Tab 40 MG PO HS Cholesterol Management #30 TAB Continued Medications: Aspirin (Aspirin) 81 Mg Chew 81 MG CHEW DAILY Ref 0 TAB Carvedilol (Coreg) 25 Mg Tab 25 MG PO BID Days 62 Ref 0 TAB Furosemide (Lasix) 40 Mg Tab 40 MG PO DAILY #31 Ref 0 TAB Lisinopril (Lisinopril) 10 Mg Tab 10 MG PO DAILY #31 Ref 0 TAB Potassium Chloride ER (Potassium Chloride ER) 10 Meq Tab 10 MEQ PO DAILY Electrolyte Replacement #31 Ref 0 TAB Jasmina Melissa DO May 31, 2016 1:54 pm
[2016-05-31] MEDS ORDERED: LIPI40TA PO (13:56)
[2016-05-31] MEDS ORDERED: FURO1TAB60 PO (16:35)
[2016-05-31] MEDS ORDERED: LISI10TA3 PO (16:35)
[2016-05-31] MEDS ORDERED: CORE25TA PO (16:35)
[2016-05-31] MEDS ORDERED: POTA10TA2 PO (16:35)
== END 2016-05-31 17:36 | disposition home or self-care (01) | DRG 292 ==
LOC: NEPA 19:10 → NEDA 21:14 → OBSVTOIN 22:13 → HCIS 05-29 02:23
PROVIDERS: ADMIT Hospitalist; ATTEND Hospitalist
PROC: 5A09357 Assistance with Respiratory Ventilation, Less than 24 Consecutive Hours, Continuous Positive Airway Pressure (ICD-10-PCS; principal; 2016-05-28)
DX: I11.0 Hypertensive heart disease with heart failure (principal); I16.1 Hypertensive emergency; J44.9 Chronic obstructive pulmonary disease, unspecified; I42.9 Cardiomyopathy, unspecified; I50.23 Acute on chronic systolic (congestive) heart failure; I25.10 Atherosclerotic heart disease of native coronary artery without angina pectoris; I44.7 Left bundle-branch block, unspecified; F17.210 Nicotine dependence, cigarettes, uncomplicated; Z91.14 Patient's other noncompliance with medication regimen; Z91.19 Patient's noncompliance with other medical treatment and regimen; Z95.5 Presence of coronary angioplasty implant and graft; Z86.73 Personal history of transient ischemic attack (TIA), and cerebral infarction without residual deficits
CPT/HCPCS: 71010; 71260; 78452; 80048; 82550; 82552; 83735; 83880; 84484; 85025; 85610; 85730; 87040; 87804; 93005; 93017; 93306; 94002; 96374; 96375; A9502; J0360; J0696; J1650; J1940; J2270; J2785; Q9967